=== PATIENT | male | born 1980 | race Caucasian/White ===

== ENCOUNTER 2017-07-03 10:32 | Emergency (ER) | payer MEDICAID, OTHER ==
[2017-07-03 10:38] VITALS: BP 134/98; PULSE 86; RESP 18; TEMP 98.6; O2SAT 100
--- NOTE | 2017-07-03 12:18 | EDPHY ---
H & P Smoking Status: Current every day smoker Time Seen by Provider: 07/03/17 11:53 HPI/ROS: CHIEF COMPLAINT: Anxiety HISTORY OF PRESENT ILLNESS: 36-year-old male presents to the emergency department requesting prescription for his anxiety. The patient has taken Ativan in the past for anxiety. He states his last dose was a few days ago. He has been taking Ativan for years. He denies feeling suicidal or homicidal. He feels extremely anxious and feels like he is going to have a panic attack. He states that he has been under lot of stress lately. He denies substance abuse or alcohol. Currently denies pain in his chest or difficulty breathing. Denies abdominal pain, nausea or vomiting. Denies headache. No reported trauma. REVIEW OF SYSTEMS: Constitutional: No fever, no chills. Eyes: No double or blurry vision. ENT: No sore throat. Respiratory: No cough, no shortness of breath. Cardiac: No chest pain. Gastrointestinal: No abdominal pain, vomiting or diarrhea. Genitourinary: No dysuria. Musculoskeletal: No neck or back pain. Skin: No rashes. Neurological: No headache. (Karley Mcgregor) Past Medical/Surgical History: Anxiety (Karley Mcgregor) Social History: Single and lives in [place] (Karley Mcgregor) Physical Exam: General Appearance: Alert, no distress. Anxious. Eyes: Pupils equal and round. Extraocular motions are all intact. ENT: Mouth: Mucous membranes moist. Respiratory: No wheezing, rhonchi, or rales, lungs are clear to auscultation. Cardiovascular: Regular rate and rhythm. Gastrointestinal: Abdomen is soft and nontender, no masses, no rebound or guarding, bowel sounds normal. Neurological: Alert and oriented x 3, cranial nerves II through XII grossly intact Skin: Warm and dry, no rashes. Musculoskeletal: Nontender to palpate along the cervical, thoracic or lumbar spine. Neck is supple. Extremities: Full range of motion and no peripheral edema. Psychiatric: Patient is oriented X 3, there is no agitation. (Karley Mcgregor) Constitutional: Initial Vital Signs Temperature (C) 37.0 C 07/03/17 10:34 Heart Rate 86 07/03/17 10:34 Respiratory Rate 18 07/03/17 10:34 Blood Pressure 134/98 H 07/03/17 10:34 O2 Sat (%) 100 07/03/17 10:34 O2 Delivery Mode Room Air Allergies/Adverse Reactions: No Known Allergies Allergy (Unverified 07/03/17 10:33) Home Medications: Medication Instructions Recorded LORazepam [Ativan] 1 mg PO BID PRN #5 tablet 07/03/17 Medical Decision Making ED Course/Re-evaluation: 36-year-old female presents to the emergency department with feeling extremely anxious. He last took his lorazepam a few days ago. Explained to the patient that he was at risk for seizure withdrawing from this medication. Encouraged to have close follow-up with his primary care provider. I did review his profile in the [place] prescription drug monitoring program and the patient has had multiple different providers prescribe narcotics as well as benzodiazepines. The patient was encouraged to establish care with one provider for his medications. Patient declined speaking with mental health. (Karley Mcgregor) I did not see this patient while he was in the emergency department. However his care was discussed with the PA while the patient was in the department. I agree with treatment plan and manage (Satish Krishnamurthy) Differential Diagnosis: Including but not limited to anxiety, depression, electrolyte abnormality, substance abuse, malingering, drug-seeking behavior. (Karley Mcgregor) Departure - Departure Disposition: Home, Routine, Self-Care Clinical Impression: Anxiety Condition: Good Instructions: Anxiety (ED) Additional Instructions: You need to establish care with 1 provider. You should obtain prescriptions from only your primary care provider. We are the 5th provider to give few benzodiazepines and/or narcotics just this year. [facility] with [facility] as discussed or you may go to their walking clinic at any time. Referrals: DR CODI [Other] - As per Instructions [facility] [Clinic] - As per Instructions Prescriptions: LORazepam [Ativan] 1 mg PO BID PRN #5 tablet PRN Reason: Anxiety
--- NOTE | 2017-07-03 18:02 | ASDISCHSUM ---
Discharge Information Plan Status:Home with No Needs Medically Cleared to Leave: Discharge Date:07/03/2017 12:26 PM CM D/C Disposition:Home, Routine, Self-Care ADT D/C Disposition:Home, Routine, Self-Care Projected Discharge Date:07/03/2017 12:26 PM Transportation at D/C:None or Unknown Discharge Delay Reason: Follow-Up Date:07/03/2017 12:26 PM Discharge Slot: Final Diagnosis: Placement Information Patient Contact Information Contact Name:LUIS ALFREDO Relationship:Mother Address:[address] [place] [address] Work Phone: [facility] Alternate Phone: [facility]/Zip Code:[place] [address] Email: Financial Information Financial Class:Medicaid Primary Plan 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 # of Emergency department Answers: 1-2 visits in the last 6 months Social determinants Answers: Mental health diagnosis (anxiety, depression, pers onality disorders, etc.) Score: 4 Date Signed: 07/03/2017 12:40 PM Electronically Signed By:Soo Bautista RN Intervention Information
== END 2017-07-03 12:26 | disposition home or self-care (01) ==
DX: F41.9 Anxiety disorder, unspecified (principal); F17.200 Nicotine dependence, unspecified, uncomplicated